=== PATIENT | male | born 1965 | race Caucasian/White ===

== ENCOUNTER 2021-04-01 12:29 | Emergency (ER) | payer SELFPAY ==
[2021-04-01] VITALS (10 sets, daily range): BP systolic 140–169; BP diastolic 84–100; PULSE 55–74; RESP 12–18; TEMP 36.3; O2SAT 96–99
--- NOTE | ~2021-04-01 | XR_ITS ---
EXAMINATION: XR chest 1V portable INDICATION: Chest pain TECHNIQUE: Portable AP chest at 1257 hours COMPARISON: None available FINDINGS: The lungs are free of acute opacities. There is no pleural effusion or pneumothorax. The ca rdiomediastinal silhouette is normal. A calcified nodule of the left upper lobe is consistent with ol d granulomatous disease. IMPRESSION: 1. No acute cardiopulmonary abnormality. Reviewed, dictated and finalized at location A.
--- NOTE | 2021-04-01 12:36 | ECG_ITS ---
Measurements Intervals [place] Rate: 66 P: 57 [place]: 163 QRS: 26 QRSD: 102 T: 39 QT: 365 QTc: 384 Interpretive Statements SINUS RHYTHM INCOMPLETE RIGHT BUNDLE BRANCH BLOCK BORDERLINE ECG Electronically Signed On 04-01-2021 12:56:35 CDT by Hayden Foster D.O.
--- NOTE | 2021-04-01 12:49 | ED.GENADULT ---
HPI - General Adult General Chief complaint: Chest Pain Stated complaint: chest pain/ambulance Source: patient Mode of arrival: EMS Limitations: no limitations History of Present Illness HPI narrative: Nta is a 55F with a PMH of obesity, tobacco abuse and a family history of early cardiac arrest that presented to the ED with chest pain. It started while he was building a pole bar with his son. It was a right sided squeezing pain. It did not radiate to his back, arms or jaw. No SOB, N/V or lightheadedness. Since getting to the ER pain has essentially subsided. Related Data Home Medications Medication Instructions Recorded Confirmed No Home Medications 04/01/21 04/01/21 Allergies Allergy/AdvReac Type Severity Reaction Status Date / Time Penicillins Allergy Unknown Verified 01/20/16 11:39 Review of Systems Constitutional: Constitutional: Reports no additional constitutional complaints Eyes: Eyes: Reports no additional eye complaints ENT: Reports system reviewed and no additional complaints, except as documented Cardiovascular: Cardiovascular: Reports as per HPI Respiratory: Respiratory: Reports no additional respiratory complaints Gastrointestinal: Gastrointestinal: Reports as per HPI Genitourinary: Genitourinary: Reports no additional male genitourinary complaints Musculoskeletal: Musculoskeletal: Reports no additional musculoskeletal complaints Integumentary/Breasts: Skin/Breast: Reports system reviewed and no additional complaints, except as docu Neurologic: Reports system reviewed and no additional complaints, except as documented Psychiatric: Psychiatric: Reports no additional psychiatric complaints Endocrine: Endocrine: Reports no additional endocrine complaints Hematologic/Lymphatic: Hematologic/Lymphatic: Reports no additional hematologic/lymphatic complaints Allergic/Immunologic: Allergic/Immunologic: Reports no additional allergic/immunologic complaints [facility] Family History Family History Father Family history of heart disease in male family member before age 55 Social History Social History Alcohol intake: current Exam Const: General: no acute distress and alert Orientation/consciousness: patient oriented x3 Limitations: No altered mental status HENMT: Head: normal to inspection Eyes: Conjunctivae: conjunctivae normal Pupils: Equal, round and reactive pupils present Neck: Neck: normal visual inspection Chest: Chest palpation & inspection: normal inspection of the chest Resp: Effort & Inspection: normal respiratory effort Auscultation: clear to auscultation bilaterally Cardio: Rate: regular rate Rhythm: regular rhythm GI: Inspection: non-distended GI Palp: Yes Soft to palpation, No Tenderness to palpation present (GI) and No Guarding due to palpation present (GI) Skin: General skin exam: normal color Rashes: no rashes Neuro: General: patient oriented x3, moves all extremities and no meningeal signs Extrem: General: normal to inspection Psych: Appearance: grossly normal Mental Status: mental status grossly normal Thought content: Yes Normal thought content present Course Course Emergency Course: Gave Nat aspirin. Ordered CXR, labs, and EKG. EKG showed NSR with a rate of 66, normal axis and no ST elevation/depression. EXAMINATION: XR chest 1V portable INDICATION: Chest pain TECHNIQUE: Portable AP chest at 1257 hours COMPARISON: None available FINDINGS: The lungs are free of acute opacities. There is no pleural effusion or pneumothorax. The cardiomediastinal silhouette is normal. A calcified nodule of the left upper lobe is consistent with old granulomatous disease. IMPRESSION: 1. No acute cardiopulmonary abnormality. Chest pain completely resolved and he had no SOB, N/V or lightheadedness. As all the labs were normal and trop was negative wit
[2021-04-01] MEDS: ASPIRIN 81 MG CHEWABLE TABLET 324 MG PO (12:50)
[2021-04-01 12:54] LABS: Basophils Absolute Auto 0.06 K/mm3 (0.00-0.10); Basophils Percent Auto 0.6 % (0.0-1.0); Eosinophils Absolute Auto 0.18 K/mm3 (0.02-0.50); Eosinophils Percent Auto 1.8 % (1.0-6.0); Hematocrit 45.6 % (40.0-54.0); Hemoglobin 15.1 g/dL (14.0-18.0); Immature Granulocyte Absolute 0.04 K/mm3 (0.00-0.00); Immature Granulocyte Percent A 0.4 % (0.0-0.0); Lymphocytes Absolute Auto 1.36 K/mm3 (1.10-4.50); Lymphocytes Percent Auto 13.5 % (18.0-42.0); Mean Corpuscular HGB Conc 33.1 g/dL (32.0-36.0); Mean Corpuscular Hemoglobin 31.9 pg (27.0-31.0); Mean Corpuscular Volume 96.4 fL (78.0-102.0); Mean Platelet Volume 10.2 fl (8.7-11.0); Monocytes Absolute Auto 0.88 K/mm3 (0.10-0.90); Monocytes Percent Auto 8.7 % (2.0-11.0); Neutrophils Absolute Auto 7.6 K/mm3 (1.7-7.2); Platelet Count Result 244 K/mm3 (150-420); Red Blood Count 4.73 M/mm3 (4.70-6.10); Red Cell Distribution Width 12.4 % (11.6-14.4); White Blood Count 10.1 K/mm3 (4.8-10.8)
[2021-04-01 13:02] LABS: INR 0.9
[2021-04-01 13:15] LABS: Alanine Aminotransferase 35 U/L (16-63); Albumin Level 4.1 g/dL (3.4-5.0); Alkaline Phosphatase 71 U/L (46-116); Anion Gap 10 mmol/L (8-16); Aspartate Amino Transferase 19 U/L (15-37); Bilirubin,Total 0.4 mg/dL (0.00-1.00); Blood Urea Nitrogen 12 mg/dL (7-18); Calcium 9.2 mg/dL (8.5-10.1); Carbon Dioxide 27 mmol/L (21-32); Chloride 105 mmol/L (98-108); Estimated CRCL calculation 99 ml/min; Estimated Glomerular Filt Rate > 60; Glucose 89 mg/dL (70-99); Lipase 65 U/L (73-393); NT Pro B Type Natriuretic Pept 53 pg/mL (0-125); Osmolality Calculated 292 mOsm/kg (285-295); Potassium 4.2 mmol/L (3.5-5.1); Sodium 142 mmol/L (136-145); Total Protein 7.4 g/dL (6.4-8.2)
[2021-04-01 13:16] LABS: Troponin I < 4.0 ng/L (0.00-60.4)
== END 2021-04-01 14:24 | disposition home or self-care (01) ==
PROVIDERS: Emergency Provider Family Medicine
DX: R07.89 Other chest pain (principal)
CPT/HCPCS: 36415; 71045; 80053; 83690; 83880; 84484; 85025; 85610; 93005; 99283; 99284; A9270

== ENCOUNTER 2024-05-20 20:47 | Emergency (ER) | payer OTHER, SELFPAY ==
[2024-05-20] VITALS (18 sets, daily range): BP systolic 158–225; BP diastolic 92–135; PULSE 48–107; RESP 9–21; TEMP 36.8; O2SAT 92–99
--- NOTE | ~2024-05-20 | XR_ITS ---
XR chest 1V portable DATE: 05/20/2024 21:15 INDICATION: Chest pain TECHNIQUE: Portable upright AP apical lordotic view on 05/20/2024 2123 hours COMPARISON: 04/01/2021 portable AP chest FINDINGS: Normal heart size. Mild aortic unfolding. No hilar or mediastinal enlargement. No pulmonary infiltrate or consolidation, pleural effusion or pulmonary vascular congestion or pneumo thorax is detected. Degenerative spurring of the thoracic spine. IMPRESSION: No active cardiopulmonary disease Reviewed, dictated and finalized at location A.
--- NOTE | 2024-05-20 20:49 | ECG_ITS ---
Test Date: 2024-05-20 20:56:55 Measurements Intervals [place] Rate: 67 P: 39 [place]: 185 QRS: -35 QRSD: 120 T: 23 QT: 377 QTc: 401 Interpretive Statements SINUS RHYTHM LEFT AXIS DEVIATION DELAYED PRECORDIAL R/S TRANSITION VOLTAGE CRITERIA FOR LVH POSSIBLE HIGH LATERAL MYOCARDIAL INFARCTION , OF INDETERMINATE AGE BASELINE ARTIFACT- I, III, AVR, AVL, AVF ABNORMAL ECG No previous ECG available for comparison Electronically Signed On 05-21-2024 06:33:27 CDT by Hayden Foster D.O.
--- NOTE | 2024-05-20 20:52 | ED.CHESTPAIN ---
HPI - Chest Pain General Chief Complaint: Chest Pain Stated Complaint: Chest pain, SOB Time Seen by Provider: 05/20/24 20:51 Source: patient Mode of arrival: ambulatory Limitations: no limitations History of Present Illness HPI narrative: 58-year-old white male obese with no known medical problems complains of retrosternal chest pain felt like indigestion 2 hours ago while watching TV. He took Tums. He feels like the pain is worse now he rates it as 3/10. She said it hurts to breathe earlier but now he is breathing fine. He has no history of heart lung disease venous thromboembolism. He is not on any medications. And he does not have a primary care provider. Denies any problems eating or drinking voiding or stooling walking talking seeing or hearing swelling lumps or bumps any other pain elsewhere bleeding or bruising dizziness or lightheadedness or any other complaints Family history is father had a heart attack at 43 anddied at age 50 of heart attack. Social history he is a wood teacher school drinks alcohol has cut back on his alcohol intake he was drinking 24 beers a week smokes some marijuana at noontime today smokes half pack a day denies any other illicit drug use. Related Data Home Medications Medication Instructions Recorded Confirmed No Home Medications 04/01/21 05/20/24 Allergies Allergy/AdvReac Type Severity Reaction Status Date / Time Penicillins Allergy Unknown Verified 01/20/16 11:39 Review of Systems Review of Systems: All systems reviewed & are unremarkable except as noted in HPI and below PMFSH Family History Family History Father Family history of heart disease in male family member before age 55 Social History Social History Alcohol intake: current Exam Narrative: White male patient with no apparent distress.? Head normocephalic, atraumatic.? Eyes conjunctiva pink sclera nonicteric.? Extraocular movements are intact.? Ears externally normal.? Oropharynx is clear with moist mucous membranes without exudates.? Neck is supple nontender no lymphadenopathy.? Back is nontender.? Lungs are clear.? Heart is regular rate and rhythm without murmurs gallops or rubs.? Chest wall nontender. Abdomen is soft and nontender no hepatosplenomegaly or masses no CVA tenderness no abdominal bruits.? Extremities no cyanosis clubbing or edema.? Skin is warm and dry without rashes or lesions.? Neurological patient is alert and oriented x4.? Motor and sensory grossly intact.? Gait is normal. Course Vital Signs Vital signs: Vital Signs Temperature 36.8 C 05/20/24 20:50 Pulse Rate 85 05/20/24 20:50 Respiratory Rate 15 05/20/24 20:50 Blood Pressure 208/135 H 05/20/24 20:50 Pulse Oximetry 97 05/20/24 20:50 Oxygen Delivery Room Air 05/20/24 20:50 Temperature 36.8 C 05/20/24 20:50 Pulse Rate 86 05/21/24 01:00 Respiratory Rate 16 05/21/24 01:00 Blood Pressure 146/96 H 05/21/24 01:00 Pulse Oximetry 97 05/21/24 01:00 Oxygen Delivery Room Air 05/21/24 01:00 MDM - Chest Pain MDM Narrative Medical decision making narrative: ? Patient placed in room:7 ? History and physical was performed. D-dimer CBC coag CMP troponin and 2 hour troponin BNP and chest x-ray all normal Independent Historian: External Source Review: Differential Dx includes but not limited to: acute coronary syndrome GERD reflux PE Medications were Reviewed: Medications given: aspirin 325, nitroglycerin sublingual X3, blood pressure came down 184/114 and then the 160/110. His best blood pressure was 158/92 but then he started having some chest discomfort again nausea his blood pressure went up to 223/113. He was given Catapres 0.2 mg p.o. hydralazine 5 mg IV. Patient's blood pressure went to 222/100 at 12:22 a.m. Protonix 40 IV given. Blood pressure 199/99 at
[2024-05-20] MEDS: ASPIRIN 81 MG CHEWABLE TABLET 324 MG PO (21:03)
[2024-05-20] MEDS: NITROGLYCERIN SL 0.4 MG TABLET (21:05)
[2024-05-20 21:07] LABS: Basophils Absolute Auto 0.06 K/mm3 (0.00-0.10); Basophils Percent Auto 0.8 % (0.0-1.0); Eosinophils Absolute Auto 0.22 K/mm3 (0.02-0.50); Eosinophils Percent Auto 2.8 % (1.0-6.0); Hematocrit 47.1 % (40.0-54.0); Hemoglobin 16.3 g/dL (14.0-18.0); Immature Granulocyte Absolute 0.02 K/mm3 (0.00-0.00); Immature Granulocyte Percent A 0.3 % (0.0-0.0); Lymphocytes Absolute Auto 1.95 K/mm3 (1.10-4.50); Lymphocytes Percent Auto 24.6 % (18.0-42.0); Mean Corpuscular HGB Conc 34.6 g/dL (32-36); Mean Corpuscular Hemoglobin 32.1 pg (27.0-31.0); Mean Corpuscular Volume 92.9 fL (78.0-102.0); Monocytes Absolute Auto 0.86 K/mm3 (0.10-0.90); Monocytes Percent Auto 10.9 % (2.0-11.0); Neutrophils Absolute Auto 4.81 K/mm3 (1.70-7.20); Neutrophils Percent Auto 60.6 % (50.0-70.0); Platelet Count Result 298 K/mm3 (150-420); Red Blood Count 5.07 M/mm3 (4.70-6.10); White Blood Count 7.9 K/mm3 (4.8-10.8)
--- NOTE | 2024-05-20 21:12 | PC.NURSE ---
kiah with xray at the bedside
[2024-05-20 21:15] LABS: D Dimer 0.32 mg/L (0.19-0.50); INR 0.9; Partial Thromboplastin Time 26.5 Sec (23.9-30.70); Prothrombin Time 9.8 Seconds (9.50-12.1)
--- NOTE | 2024-05-20 21:18 | PC.NURSE ---
patient currently denies any chest pain. reports dull headache, call light in reach. notified isabel in lab that er provider would like 2 hour troponin vs 3 hour troponin. is at the bedside.
[2024-05-20 21:21] LABS: Alanine Aminotransferase 28 U/L (16-63); Albumin Level 3.8 g/dL (3.4-5.0); Alkaline Phosphatase 90 U/L (46-116); Anion Gap 9 mmol/L (4-12); Aspartate Amino Transferase 19 U/L (15-37); Bilirubin,Total 0.4 mg/dL (0.00-1.00); Blood Urea Nitrogen 8 mg/dL (7-18); Calcium 8.8 mg/dL (8.5-10.1); Carbon Dioxide 31 mmol/L (21-32); Chloride 99 mmol/L (98-108); Estimated CRCL calculation 84 ml/min; Estimated Glomerular Filt Rate > 60; Glucose 119 mg/dL (70-99); NT Pro B Type Natriuretic Pept 115 pg/mL (0-125); Osmolality Calculated 287 mOsm/kg (285-295); Potassium 3.5 mmol/L (3.5-5.1); Sodium 139 mmol/L (136-145); Total Protein 7.4 g/dL (6.4-8.2); Troponin I 8.3 ng/L (0.00-60.4)
--- NOTE | 2024-05-20 21:29 | PC.NURSE ---
patient continues to deny chest pain, dull headache. at the bedside. call light in reach
--- NOTE | 2024-05-20 21:55 | PC.NURSE ---
Dr Cottrell has been notified of elevated blood pressures.
--- NOTE | 2024-05-20 22:52 | PC.NURSE ---
troponin drawn and taken to lab. patient is resting quietly on stretcher with at his side. educated patient regarding troponin draws. patient verbalized understanding. currently denies any pain.
--- NOTE | 2024-05-20 23:19 | ECG_ITS ---
Test Date: 2024-05-20 23:28:43 Measurements Intervals [place] Rate: 56 P: 39 [place]: 169 QRS: -32 QRSD: 121 T: 28 QT: 399 QTc: 386 Interpretive Statements SINUS BRADYCARDIA LEFT AXIS DEVIATION VOLTAGE CRITERIA FOR LVH POSSIBLE HIGH LATERAL MYOCARDIAL INFARCTION , OF INDETERMINATE AGE BORDERLINE ST-T WAVE ABNORMALITY- INFERIOR LEADS ABNORMAL ECG Compared to ECG 05/20/2024 20:56:55 HEART RATE HAS DECREASED Electronically Signed On 05-21-2024 06:35:09 CDT by Hayden Foster D.O.
--- NOTE | 2024-05-20 23:22 | PC.NURSE ---
notified talia with cardiopulmonary that new ekg was needed. she is now at the bedside
--- NOTE | 2024-05-20 23:27 | PC.NURSE ---
spoke with Dimitri at [facility] to change clonidine 0.2mg to stat vs q 12 hours.
[2024-05-20] MEDS: ONDANSETRON INJ 4 MG/2 ML VIAL IV PUSH (23:30)
[2024-05-20] MEDS: cloNIDine HCL 0.2 MG TABLET PO (23:33)
--- NOTE | 2024-05-20 23:48 | PC.NURSE ---
patient heart rate on phototypesetting equipment monitor, sinus ani at 48. recorded in vital signs. dr neil notified and at the bedside.
[2024-05-21] VITALS (11 sets, daily range): BP systolic 124–235; BP diastolic 83–128; PULSE 48–95; RESP 9–18; O2SAT 94–99
[2024-05-21] MEDS: hydrALAZINE HCL 20 MG/ML VIAL 5 MG IV PUSH (00:09)
[2024-05-21] MEDS: PANTOPRAZOLE SODIUM IV 40 MG VIAL IV PUSH (00:46)
--- NOTE | 2024-05-21 01:01 | PC.NURSE ---
patient is resting quietly on stretcher. reports that the nausea is some better . offered blanket, does not want one at this time. at the bedside. offered her fluids and blanket as well. does not want anything at this time. call light in reach.
--- NOTE | 2024-05-21 01:28 | PC.NURSE ---
and patient notified that [facility] will transport patient to [place] after completing current call they are on. and patient verbalized understanding. is going to go home and gather belongings for patient
--- NOTE | 2024-05-21 01:33 | PC.NURSE ---
patient was updated on transport plans. patient verififed understanding. lights turned off. offered blanket. does not want one at this time.
--- NOTE | 2024-05-21 02:16 | PC.NURSE ---
called and updated her that her is with EMS now being transported to [facility]
== END 2024-05-21 02:18 | disposition short-term general hospital (02) ==
PROVIDERS: Emergency Provider Emergency Medicine
DX: I20.0 Unstable angina (principal); I10 Essential (primary) hypertension
CPT/HCPCS: 36415; 71045; 80053; 83880; 84484; 85025; 85380; 85610; 85730; 93005; 96374; 96375; 99285; A9270; J0360; J2405; J2470

== ENCOUNTER 2024-05-21 03:23 | Observation (INO) | payer OTHER, SELFPAY ==
[2024-05-21] VITALS (13 sets, daily range): BP systolic 134–157; BP diastolic 81–93; PULSE 53–71; RESP 16–18; TEMP 36–36.3; O2SAT 98–100; BMI 34.5
--- NOTE | 2024-05-21 | ECHO_ITS ---
Patient Info Name: Nat East Age: 58 years : 1965 Gender: Male Ht: 69 in Wt: 233 lbs BSA: 2.31 m2 HR: 54 bpm BP: 154 / 93 mmHg Technical Quality: Fair Exam Date: 05/21/2024 11:18 AM Exam Location: Echo Lab Patient Status: Inpatient Admit Date: 05/21/2024 Staff Ordering Physician: Joselin Coronado [facility] [employer] Internship: Yany Coleman RDCS Attending Provider: Joselin Coronado Referring Physician: Ivonne JUTSICE; Exam Type: CA echo doppler color flow Study Info Indications R07.9 - Chest pain, unspecified I10 - Essential (primary) hypertension Complete two-dimensional, color flow and Doppler transthoracic echocardiogram is performed. Summary 1. Complete two-dimensional, color flow and Doppler transthoracic echocardiogram is performed. 2. Left ventricular chamber dimension is normal. 3. Left ventricular systolic function is normal, estimated at 60-65%. 4. The left ventricular diastolic function is grade II diastolic dysfunction. 5. E/e' 8 is minimally elevated. 6. There is trace tricuspid valve regurgitation. 7. No pulmonary hypertension, estimated pulmonary arterial systolic pressure is 36 mmHg. Left Ventricle E/e' 8 is minimally elevated. Left ventricular chamber dimension is normal. Left ventricular systolic function is normal, estimated at 60-65%. The left ventricular diastolic function is grade II diastolic dysfunction. Right Ventricle Right ventricular systolic function is normal and with normal TAPSE 2.1 cm. Right ventricular chamber dimension is normal. Left Atria Left atrial chamber dimension is normal. Right Atria Right atrial chamber dimension is normal. Aortic Valve The aortic valve is trileaflet. There is no aortic valve stenosis. There is no aortic valve regurgitation. Pulmonic Valve There is no pulmonic regurgitation. Mitral Valve There is no mitral valve stenosis. There is no mitral valve regurgitation. Tricuspid Valve There is trace tricuspid valve regurgitation. No pulmonary hypertension, estimated pulmonary arterial systolic pressure is 36 mmHg. Pericardium/Pleural There is no pericardial effusion. Inferior Vena Cava Normal inferior vena cava with >50% collapse upon inspiration consistent with normal right atrial pressure, 5 mmHg. Aorta The aortic root size at the sinus of Valsalva is normal. Left Ventricular Outflow Tract Name Value Normal LVOT 2D LVOT Diameter 2.0 cm LVOT Doppler LVOT Peak Gradient 6 mmHg LVOT Mean Gradient 2 mmHg LVOT VTI 21 cm LVOT VTI/AV VTI Ratio 0.8 LVOT Stroke Volume 69 ml LVOT CO 4.8 l/min LVOT CI 2.1 l/min/m2 Pulmonic Valve Name Value Normal PV Doppler PV Peak Gradient 5 mmHg Mitral Valve
--- NOTE | 2024-05-21 | EST_ITS ---
Patient Info Name: Nat East Age: 58 years : 1965 Gender: Male Ht: 69 in Wt: 233 lbs BSA: 2.31 m2 HR: 74 bpm BP: 147 / 96 mmHg Exam Date: 05/21/2024 1:19 PM Patient Status: Inpatient Admit Date: 05/21/2024 Staff Ordering Physician: Hayden Foster DO Attending Provider: Joselin Coronado Exercise Technologist: Le Coronado [facility] Nurse: Emily Palmer APN Exam Type: CA stress cony w NM Study Info A regadenoson stress test was performed. Summary 1. Sinus rhythm with left anterior superior hemiblock. 2. No ischemic changes following Lexiscan injection. 3. Clinically and electrocardiographically uneventful Lexiscan stress test. 4. Myocardial perfusion imaging exam to be dictated by Radiology. Protocol: Lexiscan Stress ECG Details Stage: REST Duration (min): 4 min : 20 sec HR (bpm): 74 SBP (mmHg): 147 DBP (mmHg): 96 Stage: REST Duration (min): 7 min : 45 sec HR (bpm): 63 SBP (mmHg): 147 DBP (mmHg): 96 Stage: STAGE 1 Duration (min): 1 min : 0 sec HR (bpm): 105 SBP (mmHg): 147 DBP (mmHg): 96 Stage: RECOVERY Duration (min): 1 min : 0 sec HR (bpm): 102 SBP (mmHg): 183 DBP (mmHg): 71 Stage: RECOVERY Duration (min): 2 min : 0 sec HR (bpm): 93 SBP (mmHg): 183 DBP (mmHg): 71 Stage: RECOVERY Duration (min): 3 min : 0 sec HR (bpm): 91 SBP (mmHg): 183 DBP (mmHg): 71 Stage: RECOVERY Duration (min): 3 min : 33 sec HR (bpm): 88 SBP (mmHg): 160 DBP (mmHg): 77 Rest HR: 63 bpm Peak HR: 108 bpm Rest Sys BP: 147 mmHg Peak Sys BP: 183 mmHg Max Pred HR: 162 bpm % Max Pred HR: 67 % Target HR: 138 bpm Max RPP: 19,764 bpm*mmHg Total Time: 1 min : 0 sec Rest Wolfe BP: 96 mmHg Peak Wolfe BP: 71 mmHg Total Dose: 0.4 mg Resting ECG Sinus rhythm with left anterior superior hemiblock. Stress ECG No ischemic changes following Lexiscan injection. Report Signatures
--- NOTE | ~2024-05-21 | NM_ITS ---
EXAMINATION: NM cony stress w perfusion DATE: 05/21/2024 14:20 INDICATION: Chest pain. TECHNIQUE: Rest images were obtained following intravenous administration of 10.5 mCi Tc99m tetrofosm in (Myoview). The patient was infused intravenously with Lexiscan (regadenoson). Then, 31.8 mCi Tc99m tetrofosmin (Myoview) was administered intravenously, and stress images were obtained. Data was alex nstructed into short axis and horizontal and vertical long axis SPECT images. Gated SPECT images were also obtained. COMPARISON: None. FINDINGS: There is no definite reversible or fixed perfusion abnormality to suggest ischemia or infar ction. There is no segmental wall motion abnormality. Left ventricular ejection fraction measures 6 7%. IMPRESSION: 1. No definite ischemia or infarct. 2. Normal left ventricular ejection fraction measuring 67%. Reviewed, dictated and finalized at location A.
--- NOTE | 2024-05-21 02:58 | ADMGEN ---
This patient, Nat East, was admitted to IMU Room 209-01. Patient/family oriented to hospital policies and general routines including ID bracelet, bed and alarms, visiting hours, pain management, procedures, bathroom and other care routines, personal items, smoking policy, room service/diet, and visiting hours. Information on how to activate the Rapid Response Team has been discussed. Patient/Family are encouraged to report perceived risks to care and to ask questions if they do not understand what they are told or what they should do.
--- NOTE | 2024-05-21 03:21 | PM.IMHP ---
H&P: HPI History of Present Illness Date/Time: 05/21/24 03:21 Chief Complaint: EPIGASTRIC PAIN Narrative: THIS IS A 58-YEAR-OLD MALE WITH PAST MEDICAL HISTORY SIGNIFICANT FOR HYPERTENSION, TOBACCO DEPENDENCE, ALCOHOL DEPENDENCE PATIENT HAS BEEN ABSTINENT FOR 2 MONTHS. PRESENTS TO THE EMERGENCY ROOM DUE TO EPIGASTRIC PAIN, NAUSEA. PATIENT DENIES ANY SHORTNESS OF BREATH, LIGHTHEADEDNESS, LEG SWELLING, HAS BEEN HIS USUAL STATE OF HEALTH UP UNTIL THIS POINT. PATIENT WAS TRANSFER FROM OUTSIDE FACILITY AT [facility] EMERGENCY ROOM FOR FURTHER EVALUATION MANAGEMENT AND TREATMENT AT OUR FACILITY. PATIENT WAS FOUND TO HAVE SYSTOLIC BLOOD PRESSURE IN THE 200'S, HAS DISCONTINUED HIS LISINOPRIL 10 YEARS AGO HAS NOT BEEN TO THE DOCTOR IN A FEW YEARS. XR chest 1V portable DATE: 05/20/2024 21:15 INDICATION: Chest pain TECHNIQUE: Portable upright AP apical lordotic view on 05/20/2024 2123 hours COMPARISON: 04/01/2021 portable AP chest FINDINGS: Normal heart size. Mild aortic unfolding. No hilar or mediastinal enlargement. No pulmonary infiltrate or consolidation, pleural effusion or pulmonary vascular congestion or pneumothorax is detected. Degenerative spurring of the thoracic spine. IMPRESSION: No active cardiopulmonary disease Review of Systems Review of Systems: EPIGASTRIC PAIN, NAUSEA PMFSH Family History Family History (Updated 05/21/24 @ 03:08 by Nat Mcmahon RN) Father Family history of heart disease in male family member before age 55 Acute myocardial infarction Social History Social History Years smoked: 30 Smoking status: Current every day smoker Tobacco type: cigarettes Smokeless tobacco user: other Alcohol intake: current Substance use type: marijuana Last use: 05/20/24 Do You Feel Safe in your Home?: Yes Lack of Transportation: No Lack of Food: Never True Current Housing: I Have Housing Concerned About Future Housing: No Difficulty Paying Gas/Electric Bills: No Difficulty Paying for Meds: No Currently Unemployed: No Education: Trade/Vocational Certificate Difficulty w/ Childcare or Family Care: No Spiritual care concerns: No Meds Home Medications and Allergies Home Medications Medication Instructions Recorded Confirmed Type No Home Medications 04/01/21 05/21/24 History losartan 50 mg tablet (Cozaar) 100 mg PO DAILY #30 tabs 05/21/24 Rx Allergies Allergy/AdvReac Type Severity Reaction Status Date / Time Penicillins Allergy Unknown Unknown Verified 05/21/24 03:10 Vital Signs Vital Signs - 24 hr 05/21/24 02:47 Temperature 96.8 F L Pulse Rate 64 Respiratory Rate 18 Blood Pressure 148/86 H Pulse Oximetry 98 Exam Narrative: LAYING IN BED Const: General: comfortable, no acute distress, well developed, alert, awake, overweight and other ( WELL-APPEARING) Nutritional Appearance: overweight Orientation/consciousness: patient oriented x3 HENMT: Head: normal to inspection, normocephalic and atraumatic Ears: hearing grossly normal bilaterally Face/Nose/Sinus: normal facial exam Face and sinus: normal facial exam Eyes: General: appearance normal, both eyes and all related structures Pupils: Equal, round and reactive pupils present EOM: EOMs intact bilaterally Neck: Neck: full ROM, no lymphadenopathy and no JVD Thyroid: thyroid normal Lymphatic: no lymphadenopathy noted Resp: Effort & Inspection: normal respiratory effort and able to speak in complete sentences Auscultation: clear to auscultation bilaterally Cardio: Jugular venous distension: no JVD Rate: regular rate Rhythm: regular rhythm Heart sounds: S1 normal heart sound present and S2 normal heart sound present GI: GI Palp: Yes Soft to palpation and Yes No hepatosplenomegaly present : General: Yes deferred Skin: Rashes: no rashes Wounds: no wounds Neuro: General: patient asim
--- NOTE | 2024-05-21 03:25 | ECG_ITS ---
Test Date: 2024-05-21 04:35:21 Measurements Intervals [place] Rate: 50 P: 60 [place]: 182 QRS: -32 QRSD: 101 T: -12 QT: 421 QTc: 387 Interpretive Statements SINUS BRADYCARDIA LEFT AXIS DEVIATION EARLY PRECORDIAL R/S TRANSITION ST-T WAVE ABNORMALITY IN INFERIOR LEADS- CONSIDER ISCHEMIA ABNORMAL ECG Compared to ECG 05/20/2024 23:28:43 ST-T WAVE ABNORMALITY, CONSIDER ISCHEMIA NOW PRESENT Electronically Signed On 05-21-2024 06:38:36 CDT by Hayden Foster D.O.
[2024-05-21 04:48] LABS: Partial Thromboplastin Time 27.3 Seconds (22.3-36.8)
[2024-05-21 04:50] LABS: Cholesterol 181 mg/dL (0-200); HDL Direct 32 mg/dL; Triglycerides 195 mg/dL (<150)
[2024-05-21 04:52] LABS: Anion Gap 5 mmol/L (4-12); Blood Urea Nitrogen 9 mg/dL (9-20); Calcium 9.4 mg/dL (8.4-10.2); Carbon Dioxide 28 mmol/L (22-30); Chloride 104 mmol/L (98-107); Estimated CRCL calculation 119 ml/min; Estimated Glomerular Filt Rate > 60; Glucose 126 mg/dL (65-110); Hemoglobin A1C 5.7 % (<5.7); Magnesium 2.2 mg/dL (1.6-2.3); Phosphorus 3.3 mg/dL (2.5-4.5); Potassium 3.9 mmol/L (3.4-5.0); Sodium 137 mmol/L (137-145)
[2024-05-21] MEDS: hydrALAZINE HCL 20 MG/ML VIAL 10 MG IV PUSH (04:57)
[2024-05-21 05:01] LABS: LDL Cholesterol Direct 121 mg/dL
[2024-05-21 05:03] LABS: Troponin I < 0.012 ng/mL (0.000-0.034)
[2024-05-21 05:57] LABS: INR 0.9; Prothrombin Time 12.6 Seconds (11.1-14.7)
[2024-05-21 08:07] LABS: Troponin I < 0.012 ng/mL (0.000-0.034)
--- NOTE | 2024-05-21 08:15 | PM.CNCAR ---
Assessment and Plan Assessment and plan (1) Chest pain: Qualifiers: Chest pain type: unspecified Qualified Code(s): R07.9 - Chest pain, unspecified Code(s): R07.9 - Chest pain, unspecified Status: Acute Assessment and Plan: AZ r/o by serial troponin and EKG. Obtain lexiscan myoview and echo. (2) Tobacco dependence: Code(s): F17.200 - Nicotine dependence, unspecified, uncomplicated Status: Acute Assessment and Plan: Counseled regarding smoking cessation. (3) Hypertension: Code(s): I10 - Essential (primary) hypertension Status: Acute Assessment and Plan: Restarted Lisinopril. He has not seen his PCP in years and stopped Lisinopril. History of Present Illness History of Present Illness Consult date/time: 05/21/24 08:15 Reason For Visit: Chest Pain uncontrolled HTN Narrative: 58 yr old man presented to ED with epigastric pain. He has a history of hypertension, smoking, prior alcohol abuse quit in January 2024, family history of father with AZ at age 55. at bedside. Reports he was sitting watching tv last night when had sudden epigastric dull pain with nausea and right sided chest pains. He took 6 TUMS with no relief. It lasted a couple of hours and resolved and no pain now. He can walk a mile without any problems. He smokes 1/2 ppd. Denies orthopnea, PND, edema, dizziness, palpitations. Review of Systems Review of Systems: All systems reviewed & are unremarkable except as noted in HPI and below Constitutional: Constitutional: Reports as per HPI, Denies chills and Denies fever(s) Cardiovascular: Cardiovascular: Reports as per HPI, Reports chest pain and Denies irregular heart rhythm Respiratory: Respiratory: Reports as per HPI and Denies dyspnea Gastrointestinal: Gastrointestinal: Reports as per HPI and Reports abdominal pain Genitourinary: Genitourinary: Reports as per HPI and Denies dysuria Musculoskeletal: Musculoskeletal: Reports as per HPI and Denies back pain Neurologic: Reports as per HPI, Denies dizziness and Denies syncope [facility] Family History Family History (Updated 05/21/24 @ 03:08 by Nat Mcmahon RN) Father Family history of heart disease in male family member before age 55 Acute myocardial infarction Social History Social History Years smoked: 30 Smoking status: Current every day smoker Tobacco type: cigarettes Smokeless tobacco user: other Alcohol intake: current Substance use type: marijuana Last use: 05/20/24 Do You Feel Safe in your Home?: Yes Lack of Transportation: No Lack of Food: Never True Current Housing: I Have Housing Concerned About Future Housing: No Difficulty Paying Gas/Electric Bills: No Difficulty Paying for Meds: No Currently Unemployed: No Education: Trade/Vocational Certificate Difficulty w/ Childcare or Family Care: No Spiritual care concerns: No Meds Home Medications and Allergies Home Medications Medication Instructions Recorded Confirmed Type No Home Medications 04/01/21 05/21/24 History Allergies Allergy/AdvReac Type Severity Reaction Status Date / Time Penicillins Allergy Unknown Unknown Verified 05/21/24 03:10 Vital Signs Vital Signs - 24 hr 05/21/24 02:47 05/21/24 03:30 05/21/24 04:45 Temperature 96.8 F L 97 F L Pulse Rate 64 54 L Respiratory Rate 18 16 Blood Pressure 148/86 H 157/90 H Pulse Oximetry 98 100 99 Oxygen Delivery Room Air 05/21/24 04:00 05/21/24 03:03 05/21/24 05:45 Temperature Pulse Rate 53 L 55 L Respiratory Rate Blood Pressure 134/81 Pulse Oximetry Oxygen Delivery 05/21/24 06:00 05/21/24 07:39 Temperature 97.3 F L Pulse Rate 65 62 Respiratory Rate 18 Blood Pressure 154/93 H Pulse Oximetry 99 Oxygen Delivery Exam Const: General: cooperative, healthy appearing and comfortable Resp: Auscultati
[2024-05-21 11:14] LABS: Troponin I < 0.012 ng/mL (0.000-0.034)
--- NOTE | 2024-05-21 12:10 | PM.IMPN ---
Progress Note: A&P Assessment and Plan (1) Chest pain: Qualifiers: Chest pain type: unspecified Qualified Code(s): R07.9 - Chest pain, unspecified Code(s): R07.9 - Chest pain, unspecified Status: Acute Assessment and Plan: PLACED IN OBSERVATION IN IMU SERIAL TROPONIN ECHOCARDIOGRAM IN AM CARDIOLOGY CONSULT 05/21/24: Cardiology consult - Lexiscan and ECHO ordered. Continue telemetry Serial trops are negative. (2) Uncontrolled hypertension: Code(s): I10 - Essential (primary) hypertension Status: Acute Assessment and Plan: HYDRALAZINE 10 MG IV P.R.N. WILL RESTART LISINOPRIL 05/21/24: Start Losartan 100 mg daily per cardiology. No lisinopril. (3) Tobacco dependence: Code(s): F17.200 - Nicotine dependence, unspecified, uncomplicated Status: Acute Assessment and Plan: NICOTINE PATCH NEEDED PATIENT EXPRESSES DESIRE TO QUIT AND HAS BEEN CUTTING BACK 05/21/24: Start Nicotine patch. Smoking cessation counseling has been performed. (4) Alcohol dependence: Code(s): F10.20 - Alcohol dependence, uncomplicated Status: Acute Assessment and Plan: HAS BEEN ABSTINENT /SOBER FOR 2 MONTHS 05/21/24: No s/s of withdrawal. Plan Discharge pending Cardiology clearance. Time Spent With Patient Time with patient: 15 - 25 minutes Subjective Date/time seen: 05/21/24 0725 Interval history: This very pleasant male pt was examined at the bedside today in interval assessment. He is awaiting cardiology eval and currently has resolution of symptoms. BP remains elevated. He denies any dyspnea and no N/V/D or headache. Review of Systems Review of Systems: All systems reviewed & are unremarkable except as noted in HPI and below Exam Narrative: CONSTITUTIONAL: Pleasant male pt walking in the room at this time in no acute distress. HENMT: atraumatic and normocephalic. MMM, patent oropharynx. EYES: Non icteric, PERRLA, EOMs intact. NECK: No JVD, Supple AROM. RESPIRATORY: CTAB CARDIO: RRR, S1 and S2 without m,r,g,h, S3 or S4. No displacement of PMI. GI: Soft, NT, BS present x4 quads. : Deferred SKIN: Without lesion, intact. NEURO: No focal deficits. EXTREMITIES: FROM of all extremities in a supple manner without deficit. PSYCH: Alert and oriented x4. Normal mood and affect. Objective Data Vital Signs Vital Signs: Vital Signs - 24 hr 05/21/24 02:47 05/21/24 03:30 05/21/24 04:45 Temperature 96.8 F L 97 F L Pulse Rate 64 54 L Respiratory Rate 18 16 Blood Pressure 148/86 H 157/90 H Pulse Oximetry 98 100 99 Oxygen Delivery Room Air 05/21/24 04:00 05/21/24 03:03 05/21/24 05:45 Temperature Pulse Rate 53 L 55 L Respiratory Rate Blood Pressure 134/81 Pulse Oximetry Oxygen Delivery 05/21/24 06:00 05/21/24 07:39 05/21/24 08:00 Temperature 97.3 F L Pulse Rate 65 62 Respiratory Rate 18 Blood Pressure 154/93 H Pulse Oximetry 99 Oxygen Delivery Room Air 05/21/24 08:00 05/21/24 10:00 05/21/24 11:30 Temperature 97.4 F L Pulse Rate 57 L 54 L 71 Respiratory Rate 18 Blood Pressure 148/86 H Pulse Oximetry 99 Oxygen Delivery 05/21/24 12:00 Temperature Pulse Rate Respiratory Rate Blood Pressure Pulse Oximetry Oxygen Delivery Room Air Meds/Results Medications: Active Medications Generic Name Dose Route Start Last Admin Trade Name Freq PRN Reason Stop Dose Admin Acetaminophen 650 mg 05/21/24 03:23 Acetaminophen 325 Mg Tablet PO Q4H PRN Mild Pain (1-3) or Fever Al Hydrox/Mg Hydrox/Simethicone 30 ml 05/21/24 03:23 Mag Hydrox/Al Hydrox/Simeth 30 Ml Udc PO QID PRN Dyspepsia Hydralazine HCl 10 mg 05/21/24 03:25 05/21/24 04:57 Hydralazine Hcl 20 Mg/Ml Vial IV PUSH 10 mg Q8H PRN Administration Blood Pressure - High RDT=811 Losartan Potassium 100 mg 05/21/24 09:00 Losartan Potassium 50 Mg Tablet
[2024-05-21] MEDS: LOSARTAN POTASSIUM 50 MG TABLET 100 MG PO (12:34)
--- NOTE | 2024-05-21 12:38 | PC.NURSE ---
Pt to nuclear medicine for Lexiscan via wheelchair.
--- NOTE | 2024-05-21 14:20 | PC.NURSE ---
Pt returned from nuclear medicine via wheelchair. No issues noted
--- NOTE | 2024-05-21 15:07 | PM.DS ---
DS: Admitting Diagnosis Discharge Date 05/21/2024 Admitting Diagnosis Chest Pain Hypertension DS: Discharge Diagnosis Discharge Diagnosis (1) Chest pain: Qualifiers: Chest pain type: unspecified Qualified Code(s): R07.9 - Chest pain, unspecified Code(s): R07.9 - Chest pain, unspecified Status: Acute Assessment and Plan: PLACED IN OBSERVATION IN IMU SERIAL TROPONIN ECHOCARDIOGRAM IN AM CARDIOLOGY CONSULT 05/21/24: Cardiology consult - Lexiscan and ECHO ordered and resulted with normal stress test and EF of 67%. Continue telemetry Serial trops are negative. Suspect the pain is due to the elevated BP. (2) Uncontrolled hypertension: Code(s): I10 - Essential (primary) hypertension Status: Acute Assessment and Plan: HYDRALAZINE 10 MG IV P.R.N. WILL RESTART LISINOPRIL 05/21/24: Start Losartan 100 mg daily per cardiology. No lisinopril. Follow up with Cardiology in one week to evaluate effectiveness. (3) Tobacco dependence: Code(s): F17.200 - Nicotine dependence, unspecified, uncomplicated Status: Acute Assessment and Plan: NICOTINE PATCH NEEDED PATIENT EXPRESSES DESIRE TO QUIT AND HAS BEEN CUTTING BACK 05/21/24: Start Nicotine patch. Smoking cessation counseling has been performed. (4) Alcohol dependence: Code(s): F10.20 - Alcohol dependence, uncomplicated Status: Acute Assessment and Plan: HAS BEEN ABSTINENT /SOBER FOR 2 MONTHS 05/21/24: No s/s of withdrawal. Plan Discharge OK per cardiology. DS: Summary Hospital Course Reason for hospitalization: Chest pain Hypertension Hospital Course: This 58 year old male with PMH of HTN, Tobacco and ETOH dependence without use in two months presented to the hospital as a transfer from [place] with CP and HTN. He was admitted to the hospital and workup was started with a cardiology consult and in turn a Lexiscan stress test that was normal and a noted EF of 67%. He was started on Losartan 100 mg daily and has had good control of his BP while here. He is without pain, has had three negative troponins. ACS is ruled out. Cardiology is comfortable with discharge at this time and will follow with him in one weeks time. Time spent discussing smoking cessation with patient: more than 10 minutes Status at Discharge Cognitive/behavioral status at discharge: At baseline Functional status at discharge: independent ambulation Overall status at discharge: patient is back to baseline Time Spent with Patient Time attestation: Total time spent providing and/or coordinating discharge services: Time spent: Greater than 30 minutes Specific discharge activities: Follow up, medications Exam Narrative: CONSTITUTIONAL: Pleasant male pt walking in the room at this time in no acute distress. HENMT: atraumatic and normocephalic. MMM, patent oropharynx. EYES: Non icteric, PERRLA, EOMs intact. NECK: No JVD, Supple AROM. RESPIRATORY: CTAB CARDIO: RRR, S1 and S2 without m,r,g,h, S3 or S4. No displacement of PMI. GI: Soft, NT, BS present x4 quads. : Deferred SKIN: Without lesion, intact. NEURO: No focal deficits. EXTREMITIES: FROM of all extremities in a supple manner without deficit. PSYCH: Alert and oriented x4. Normal mood and affect. DS: Data Data Completed and Pending Completed studies during hospitalization: ITS Impressions Lexiscan Stress Test 05/21/24 14:33 IMPRESSION: 1. No definite ischemia or infarct. 2. Normal left ventricular ejection fraction measuring 67%. Labs on day of discharge: Labs from last 24 hours 05/21/24 05/21/24 05/21/24 10:46 07:21 04:24 PT 12.6 INR 0.9 APTT 27.3 Sodium 137 Potassium 3.9 Chloride 104 Carbon Dioxide 28 Anion Gap 5 BUN 9 Creatinine 0.70 Estim Creat Clear Calc 119 Estimated GFR > 60 Glucose 126 H Hemoglobin A1c 5.7 Calcium 9.4 Phosphorus 3.3 Magn
== END 2024-05-21 15:53 | disposition home or self-care (01) ==
PROVIDERS: Admitting Provider Internal Medicine; Visit Provider Nurse Practitioner Adult Health
DX: R07.9 Chest pain, unspecified (principal); I10 Essential (primary) hypertension; F10.21 Alcohol dependence, in remission; F17.210 Nicotine dependence, cigarettes, uncomplicated; F12.90 Cannabis use, unspecified, uncomplicated
CPT/HCPCS: 36415; 78452; 80048; 80061; 83036; 83735; 84100; 84484; 85610; 85730; 93005; 93017; 93306; 96374; A9270; A9502; G0378; G0379; J0360; J2785